=== PATIENT | female | born 1990 | race Two or more races ===

== ENCOUNTER 2021-12-15 19:00 | Emergency (ER) | payer MEDICAID ==
[2021-12-15] MEDS ORDERED: Ondansetron 4 MG/2 ML SDV IVPUSH ONE ×2 (21:14→23:15)
[2021-12-15] MEDS ORDERED: Dextrose 5%-Lactated Ringers 1,000 ML IV SCH ×2 (21:15→21:45)
[2021-12-15 21:51] LABS: BLOOD UREA NITROGEN,BUN 23 mg/dL (7.0-18.0); CARBON DIOXIDE,CO2 19.2 mmol/L (21.0-32.0); CHLORIDE,CL 104 mmol/L (98-107); GLUCOSE RANDOM 140 mg/dL (74-106); LIPASE 77 U/L (73-393); POTASSIUM,K 3.7 mmol/L (3.5-5.1); SODIUM,NA 136 mmol/L (136-145)
[2021-12-15 23:02] LABS: CORONAVIRUS COVID-19 NAA NEGATIVE (NEGATIVE); INFLUENZA A NAA NEGATIVE (NEGATIVE); INFLUENZA B NAA NEGATIVE (NEGATIVE); RESPIRATORY SYNCYTIAL VIR NAA NEGATIVE (NEGATIVE)
== END 2021-12-15 23:30 | disposition home or self-care (01) ==
LOC: MW.ED 19:00
DX: R11.10 Vomiting, unspecified (principal); R19.7 Diarrhea, unspecified; E03.9 Hypothyroidism, unspecified; Z88.0 Allergy status to penicillin; Z79.899 Other long term (current) drug therapy; Z20.822 Contact with and (suspected) exposure to COVID-19
CPT/HCPCS: 0241U; 36415; 80053; 81001; 81025; 82947; 83690; 85025; 96361; 96374; 96376; 99284; J2405; J7121

== ENCOUNTER 2021-12-18 19:32 | Emergency (ER) | payer MEDICAID ==
[2021-12-18] MEDS ORDERED: Ondansetron 4 MG/2 ML SDV IVPUSH ONE (21:23)
[2021-12-18] MEDS ORDERED: Sodium Chloride 0.9% 1,000 ML IV ONE ×2 (21:23→21:24)
[2021-12-18] MEDS ORDERED: Loperamide 2 MG Cap PO STA (21:24)
[2021-12-18 22:14] LABS: BLOOD UREA NITROGEN,BUN 17 mg/dL (7.0-18.0); CARBON DIOXIDE,CO2 26.3 mmol/L (21.0-32.0); CHLORIDE,CL 104 mmol/L (98-107); GLUCOSE RANDOM 95 mg/dL (74-106); LIPASE 90 U/L (73-393); POTASSIUM,K 3.4 mmol/L (3.5-5.1); SODIUM,NA 140 mmol/L (136-145)
== END 2021-12-18 23:07 | disposition home or self-care (01) ==
LOC: MW.ED 19:32
DX: K52.9 Noninfective gastroenteritis and colitis, unspecified (principal); E03.9 Hypothyroidism, unspecified; Z88.0 Allergy status to penicillin; Z79.899 Other long term (current) drug therapy
CPT/HCPCS: 36415; 80053; 83690; 85025; 96361; 96374; 99284; A9270; J2405; J7030

== ENCOUNTER 2022-01-06 04:30 | Emergency (ER) | payer BC, MEDICAID ==
[2022-01-06] MEDS ORDERED: Ketorolac 30 MG/ML SDV ONE (04:58)
[2022-01-06] MEDS ORDERED: Ondansetron 4 MG/2 ML SDV ONE (04:58)
[2022-01-06] MEDS ORDERED: Ondansetron 4 MG/2 ML SDV IVPUSH ONE ×2 (05:44→06:55)
[2022-01-06] MEDS ORDERED: Ketorolac 30 MG/ML SDV IVPUSH ONE (05:44)
[2022-01-06] MEDS ORDERED: Sodium Chloride 0.9% 1,000 ML IV ONE ×2 (05:46→06:29)
[2022-01-06 05:51] LABS: BLOOD UREA NITROGEN,BUN 17 mg/dL (7.0-18.0); CARBON DIOXIDE,CO2 27.2 mmol/L (21.0-32.0); CHLORIDE,CL 104 mmol/L (98-107); GLUCOSE RANDOM 105 mg/dL (74-106); POTASSIUM,K 3.3 mmol/L (3.5-5.1); SODIUM,NA 138 mmol/L (136-145)
[2022-01-06] MEDS ORDERED: cefTRIAXone 1 GM in Sodium Chloride 0.9% 50 ML IV ONE (06:18)
[2022-01-06] MEDS ORDERED: Sodium Chloride 0.9% 2.5 ML Syringe FLUSH PRN (06:29)
[2022-01-06] MEDS ORDERED: Sodium Chloride 0.9% 10 ML Syringe FLUSH PRN (06:29)
[2022-01-06] MEDS ORDERED: fentaNYL 50 MCG/ML SDV IVPUSH ONE (06:54)
[2022-01-06] MEDS ORDERED: Tamsulosin 0.4 MG Cap.ER PO ONE (06:54)
== END 2022-01-06 09:13 ==
LOC: MW.ED 04:30
DX: N13.2 Hydronephrosis with renal and ureteral calculous obstruction (principal); E03.9 Hypothyroidism, unspecified; Z20.822 Contact with and (suspected) exposure to COVID-19; Z88.0 Allergy status to penicillin
CPT/HCPCS: 36415; 74176; 80053; 81001; 81025; 83605; 85025; 87040; 87086; 87635; 96374; 96375; 96376; 99285; A9270; J0696; J1885; J2405; J3010; J3490; J7030; U0002

== ENCOUNTER 2022-06-12 07:31 | Emergency (ER) | payer BC, MEDICAID | END 2022-06-12 08:35 | disposition home or self-care (01) | LOC: MW.ED 07:31 | DX: M25.561 Pain in right knee (principal); E03.9 Hypothyroidism, unspecified; Z88.0 Allergy status to penicillin; Z79.899 Other long term (current) drug therapy | CPT/HCPCS: 99283 ==

== ENCOUNTER 2022-07-19 11:53 | Emergency (ER) | payer BC, MEDICAID ==
[2022-07-19 13:48] LABS: CORONAVIRUS COVID-19 NAA NEGATIVE (NEGATIVE); INFLUENZA A NAA POSITIVE (NEGATIVE); INFLUENZA B NAA NEGATIVE (NEGATIVE)
== END 2022-07-19 14:02 | disposition home or self-care (01) ==
LOC: MW.ED 11:53
DX: J10.1 Influenza due to other identified influenza virus with other respiratory manifestations (principal); E03.9 Hypothyroidism, unspecified; Z88.0 Allergy status to penicillin; Z79.899 Other long term (current) drug therapy; Z20.822 Contact with and (suspected) exposure to COVID-19
CPT/HCPCS: 0240U; 99283